=== PATIENT | female | born 1980 | race Caucasian/White ===

== ENCOUNTER 2016-10-23 08:54 | Emergency (ER) | payer OTHER ==
[~2016-10-23] VITALS: Ht 152.4 cm; Wt 66.0 kg
[~2016-10-23 08:54] MED LIST: ACETAMINOPHEN-1 EAC1; ALPRAZOLAM1 MG; ALPRAZOLAM1 MG PO; AMBIEN10 MG PO; AMBIEN5 M1 PO; AMBIEN5 MG PO; BACTRIM,SEPT1 TABLET PO; BUSPAR; CLONAZEPAM0.5 MG; DICLOFENAC SODI75 MG; DILAUDID2 MG PO; Dilaudid PO; ENDOCET 5-3251 EACH PO; ESCITALOPRAM OX10 MG; ESCITALOPRAM OX20 MG; FENTANYL1 EAC5; FIORICET,ESG1 TABLET PO; FLEXERIL5 MG PO; Feosol PO; HYDROXYZINE PAM25 MG PO; IBUPROFEN800 MG; LACTATED RING1000 ML IV; LASIX20 MG PO; LODINE400 MG PO; MACROBID100 MG PO; METHADONE10 MG PO; MIRALAX17 GM PO; Motrin PO; NAPROSYN500 MG PO; ONDANSETRON HCL4 M1; ONDANSETRON ODT8 MG; OXYCODONE-ACET1 EACH; PREFERA-OB P1 TABLET PO; PRENAPLUS TABL1 EACH; PYRIDIUM100 MG PO; SEROQUEL100 MG PO; SEROQUEL12.5 MG PO; SEROQUEL200 MG PO; TERCONAZOLE 0.8% CRE; TIZANIDINE HCL2 MG; TOPAMAX100 MG PO; TOPIRAMATE100 MG; TRAMADOL HCL50 MG; TRAMADOL HCL50 MG PO; TRAZODONE HCL100 MG PO; ULTRAM50 MG PO
[2016-10-23 09:04] VITALS: BP 107/70
[2016-10-23] MEDS ORDERED: NAPROXEN500 MG PO (09:45)
[2016-10-23] MEDS ORDERED: PEN-VEE K,VEET500 MG PO (09:45)
== END 2016-10-23 10:02 | disposition home or self-care (01) ==
LOC: EME 08:54
PROC: 3E0T3BZ Introduction of Anesthetic Agent into Peripheral Nerves and Plexi, Percutaneous Approach (ICD-10-PCS; principal; 2016-10-23)
DX: K08.89 Other specified disorders of teeth and supporting structures (principal); K02.9 Dental caries, unspecified; F17.200 Nicotine dependence, unspecified, uncomplicated
CPT/HCPCS: 99281; 99283

== ENCOUNTER 2017-01-31 12:30 | Emergency (ER) | payer OTHER ==
[~2017-01-31] VITALS: Ht 152.4 cm; Wt 67.8 kg
[~2017-01-31 12:30] MED LIST changes: +NAPROXEN500 MG PO; +PEN-VEE K,VEET500 MG PO
[2017-01-31] MEDS ORDERED: PEN-VEE K,VEET500 MG PO (14:21)
[2017-01-31] MEDS ORDERED: NAPROSYN500 MG PO (14:21)
[2017-01-31] MEDS ORDERED: ULTRAM50 MG PO (14:21)
[2017-01-31 14:41] VITALS: BP 114/74
== END 2017-01-31 14:57 | disposition home or self-care (01) ==
LOC: EME 12:30
DX: K02.9 Dental caries, unspecified (principal); F17.200 Nicotine dependence, unspecified, uncomplicated
CPT/HCPCS: 99281; 99284